=== PATIENT | male | born 1930 | race Caucasian/White ===

== ENCOUNTER 2019-10-10 18:17 | Emergency (ER) | payer OTHER, BC ==
[~2019-10-10] VITALS: Ht 167.6 cm; Wt 81.7 kg
[2019-10-10 20:12] LABS: HEMATOCRIT 34.6 % (42.0-52.0); HEMOGLOBIN 11.5 gm/dL (14.0-18.0); MCH 27.9 pg (26.0-34.0); MCHC 33.3 g/dL (28.0-37.0); MCV 83.7 fL (80.0-100.0); PLATELET COUNT 183 thou/uL (150-400); RBC 4.13 mil/uL (4.50-6.00); RDW 15.2 % (10.5-14.5); WBC 5.4 thou/uL (4.0-11.0)
[2019-10-10 20:14] LABS: URINE BILIRUBIN NEGATIVE (Negative); URINE BLOOD TRACE (Negative); URINE CLARITY CLEAR; URINE COLOR YELLOW; URINE GLUCOSE-RANDOM* NEGATIVE (Negative); URINE KETONES NEGATIVE (Negative); URINE LEUKOCYTES-REFLEX NEGATIVE (Negative); URINE NITRITE-REFLEX NEGATIVE (Negative); URINE PROTEIN (DIPSTICK) TRACE (Negative); URINE SPECIFIC GRAVITY 1.025 (1.005-1.035); URINE UROBILINOGEN 0.2 E.U./dl (0.2-1.0)
[2019-10-10 20:21] LABS: ANION GAP 9 mmol/L (7-16); BUN 25 mg/dL (7-18); CALCIUM 9.7 mg/dL (8.5-10.1); CHLORIDE 103 mmol/L (98-107); CO2 25 mmol/L (21-32); CREATININE 0.9 mg/dL (0.7-1.3); GLUCOSE 110 mg/dL (74-106); POTASSIUM 5.3 mmol/L (3.5-5.1); SODIUM 137 mmol/L (136-145)
[2019-10-10 20:23] LABS: MAGNESIUM 2.3 mg/dL (1.8-2.4); TROPONIN-I <0.06 ng/mL (<0.06)
[2019-10-10] MEDS ORDERED: NORVASC 2.5 MG2.5 M1 PO (20:42)
[2019-10-10] MEDS ORDERED: PEPCID40 MG PO (20:42)
[2019-10-10 20:43] LABS: ABSOLUTE NEUTROPHILS 3.3 thou/uL (1.4-8.2); ANISOCYTOSIS 1+; POLYCHROMASIA OCCASIONAL
[2019-10-10] MEDS ORDERED: ASA81BEC PO (20:43)
[2019-10-10] MEDS ORDERED: LIPITOR 20 MG T20 M1 PO (20:43)
[2019-10-10 21:58] LABS: CREATININE 0.7 mg/dL (0.7-1.3)
[2019-10-10 22:06] LABS: POTASSIUM 3.3 mmol/L (3.5-5.1)
[2019-10-10 22:57] VITALS: BP 131/70
--- NOTE | 2019-10-11 10:04 | EKG ---
[place] [address] [facility] [place] [address] ELECTROCARDIOGRAM REPORT Name: PREMA MCKEON [id number] Admission: 10/10/19 Attend Phys: Discharge: 10/10/19 Date of : [birth year] Report #: [id number] THIS REPORT FOR: //name// 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
== END 2019-10-10 22:58 | disposition home or self-care (01) ==
LOC: ER 18:17
PROVIDERS: Emergency Medicine
DX: R53.1 Weakness (principal); I10 Essential (primary) hypertension; E78.5 Hyperlipidemia, unspecified; Z96.659 Presence of unspecified artificial knee joint